=== PATIENT | female | born 1940 | race Caucasian/White ===

== ENCOUNTER → 2018-04-24 | Outpatient (CLI) | payer MEDICARE, BC, OTHER | END | disposition home or self-care (01) | LOC: LABWHC1 10:47 | PROVIDERS: ATTEND Anesthesiology | DX: Z01.818 Encounter for other preprocedural examination (principal) | CPT/HCPCS: 36415; 93005 ==

== ENCOUNTER → 2018-06-11 | Outpatient (CLI) | payer MEDICARE, BC ==
[2018-06-10 15:17] VITALS: BMI 25.0
[2018-06-11 13:42] VITALS: BP 154/80; PULSE 63; RESP 18
--- NOTE | 2018-06-12 09:08 | P.PAINCN ---
History of Present Illness - Reason for Consult Consult date: 06/11/18 - History of Present Illness This is an initial consultation visit for this 78 years old female, with a chronic history of severe low back pain, patient had lumbar laminectomy surgery 3 years ago, patient continued to have pain after the surgery the pain is constant, increased with any activity with radiation to the lower extremity, right side more than the left side, she denies any motor or sensory deficit she denies any change in the bowel movement or urination and she denies any fever or night sweats, intensity of the pain 02/10 increased with any activity to 8-9/ 10,, she has done physical therapy with no benefit. She is currently on Neurontin 300 mg every 6 hours, and she had minimal benefit from it, she denies any side effect of the medication, she was evaluated by Dr. Burgess neurosurgery, and he recommended interventions pain management Past Medical History Past Medical History: Diabetes Mellitus, GERD/Reflux, Hypertension, Musculoskeletal Disorder, Osteoarthritis (OA) Additional Past Medical History / Comment(s): bulging disc & spurs, pain down both legs, dick. right side, hx. pancreatitis 2010, diet controlled diabetes- used to be on metformin History of Any Multi-Drug Resistant Organisms: None Reported Past Surgical History: Back Surgery, Joint Replacement, Orthopedic Surgery Additional Past Surgical History / Comment(s): right knee replaced, knee manipulation, right hip replaced & then revision of it Past Anesthesia/Blood Transfusion Reactions: No Reported Reaction Smoking Status: Former smoker Past Alcohol Use History: None Reported Additional Past Alcohol Use History / Comment(s): quit smoking 40 yrs ago, smoked <ppd for 10 yrs. Past Drug Use History: None Reported - Past Family History Mother Family Medical History: Cancer Brother(s) Family Medical History: Cancer Medications and Allergies Home Medications Medication Instructions Recorded Confirmed Type Atenolol [Tenormin] 50 mg PO DAILY 06/10/18 06/11/18 History Gabapentin [Neurontin] 300 mg PO QID 06/10/18 06/11/18 History Hydrochlorothiazide [Hydrodiuril] 50 mg PO DAILY 06/10/18 06/11/18 History Omeprazole 20 mg PO DAILY 06/10/18 06/11/18 History Potassium Chloride [Klor-Con 20] 20 meq PO MOWEFR 10/08/18 10/09/18 History amLODIPine [Norvasc] 5 mg PO DAILY 06/10/18 06/11/18 History Allergies Allergy/AdvReac Type Severity Reaction Status Date / Time ampicillin Allergy Rash/Hives Verified 06/11/18 13:24 Physical Exam Vitals: Vital Signs Pulse Resp BP Pulse Ox 06/11/18 13:25 63 18 154/80 96 Social history : not smoker , NO ETOH , NO Illegal drugs use . Review of Systems : 1- Constitutional : no chills , no fever , no night sweats , 2- Ears : no ear discharge , no change in hearing 3-Nose, Mouth ,Throat ; no bleeding gums, no sore throat , no epistaxis , 4-Cardiovascular : Denies chest pain, , no orthopnea , no palpitation 5-Respiratory : Denies cough , no dyspnea , no hemoptysis 6-Gastrointestinal :, no change in bowel habits , no coffee- ground emesis . 7-Genitourinary : No hematuria , no discharge , no incontinence, 8-Musculoskeletal : No gait dysfunction , report low back pain , 9- Neurological : no ataxia , no tremor , no sezure , 10-Psychatric , no suicidal ideation no hallucination 11- Endocrine : no cold intolerence , no polyuria , no polydypsia , 12-Hematologic : no easy bleeding , no easy brusing , 13-Allergic / immunology : no angioedema , no wheezing ,no allergic rhinitis 14-Integumentary : no brttle nails , no change hair / nails , no foot/leg ulcers . Physical Examinations : 1-Constitutional : Cooperative , not in acute distress . 2-HEENT : nech ; supple , no Lymphadenopathy , no Thyromegaly , :eyes , no icterus, no photophobia . ENT : , normal oropharynx , no Thrush 3- Respiratory : Chest clear to auscultations Bilaterally , no wheezing . 4- Cardiovascular : regular rate and rhythem , S1 , S2 , no S3 , no S4. 5- Gastrointestinal: abdomen soft no tenderness , no organomegally . 6- Genitourinary : Defferred . 7-Integumentary : No cellulitis , no ulcers , normal skin turgor , no cyanotic . 8- neurologic : Cranial nerve II to XII intact , no focal neurological deffecit 9-psychatric : alert , oriented X 3 , appropriate affect , intact judgment and insight . 10-Lymphatic : no Lymphadenopathy. 11- musculoskeltal: antalgic gait Lumber spine moter stegnth lower extremities ,thigh and legs 5/5 Right side , 5/5 Left side deep tendon reflexes : normal Knee Jerk , normal ankle Jerk positive lumber facet Loading Test Range of motion of the lumbar spine Flexion 30 degrees, extension 10 degrees strait leg raising test , positive at 30 degree on the right side and is positive at 60 on the left side Fabere test positive bilaterally. Results Comments: MRI of the lumbar spine done at [facility]= L2-3 lumbar degenerative disc disease and right-sided disc herniation, L3 4 lumbar facet arthropathy and spinal stenosis, L4 5 and L5-S1 foraminal stenosis and spinal canal stenosis Assessment and Plan Plan: Assessment and plan= post laminectomy pain syndrome lumbar area, lumbar spinal stenosis, lumbar disc herniation Patient could benefit from caudal epidural steroid injection with lysis of epidural adhesions, procedure risk and benefits and alternatives discussed with the patient she agreed with proceeding Time with Patient: Greater than 30 PQRS Measure Charge Sheet Measure #130: Documentation of Current Meds in Medical Chart: Patient's medications documented in chart Measure #226: Tobacco Use: Screen & Cessation Intervention: Pt not a tobacco user Measure #111: Pneumonia Vaccination: Pneumococcal vaccine administered or previously received Measure #47: Advance Care Plan: Advance care planning discussed & documented, pt chose/unable to give Measure #412: Opioid Treatment Agreement: No documentation of signed opioid treatment agreement Measure #408: Opioid Therapy Follow-up Evaluation: Patient had NO f/u eval minimum every 3 months during opioid therapy Measure #317: Preventitive Care & Scrn High Bld Press & F/U: Pre-hypertensive or hypertensive BP documented, pt will f/u with PCP Measure #128: Body Mass Index (BMI) Screening & Follow-up: BMI documented within normal parameters Measure #131: Pain Assessment & Follow-up: Pain positive & plan documented, Follow-up scheduled Measure #431: Unhealthy Alcohol Use Preventative Care & Scrn: Patient not identified as an unhealthy alcohol user PQRS Narrative: Smoking Status Former smoker Do You Want the Pneumonia Vaccine Up to Date Vaccine AT THIS TIME? Blood Pressure 154/80 Pain Intensity [Lower Back] 8 Hx Alcohol Use (MH) No Home Medications: Ambulatory Orders Atenolol [Tenormin] 50 mg PO DAILY 06/10/18 Gabapentin [Neurontin] 300 mg PO QID 06/10/18 Hydrochlorothiazide [Hydrodiuril] 50 mg PO DAILY 06/10/18 Omeprazole 20 mg PO DAILY 06/10/18 Potassium Chloride [Klor-Con 20] 20 meq PO MOWEFR 06/10/18 amLODIPine [Norvasc] 5 mg PO DAILY 06/10/18
== END ==
LOC: PNWHC3 12:39
PROVIDERS: ATTEND Specialist
DX: G89.29 Other chronic pain (principal); M96.1 Postlaminectomy syndrome, not elsewhere classified; M48.061 Spinal stenosis, lumbar region without neurogenic claudication; M51.26 Other intervertebral disc displacement, lumbar region; I10 Essential (primary) hypertension; Z87.891 Personal history of nicotine dependence; Z79.899 Other long term (current) drug therapy; Z88.1 Allergy status to other antibiotic agents
CPT/HCPCS: 99211

== ENCOUNTER → 2018-06-25 | Day surgery (SDC) | payer MEDICARE, BC ==
[2018-06-19 10:00] VITALS: BMI 25.0
[~2018-06-25] MED LIST: SODIUM CHLORIDE 0.9% 1,000 ML IV ONE; SODIUM CHLORIDE 0.9% 500 ML 500 ML IV SCH
[2018-06-25 06:20] VITALS: RESP 18; TEMP 98
[2018-06-25 06:21] LABS: Glucose,Whole Blood 94 mg/dL (75-99)
--- NOTE | 2018-06-25 07:26 | P.PCN ---
Date of Procedure: 06/25/18 Procedure(s) Performed: PREOP DIAGNOSIS: 1- Lumbar postlaminectomy syndrome POSTOP DIAGNOSIS:1- Lumbar postlaminectomy syndrome PROCEDURE: Caudal epidural steroid injection with epidurolysis and epidurogram under fluoroscopic guidance ANESTHESIA: Local with 1% lidocaine 3 ml ,and moderate sedation, with Versed 2 mg and fentanyl 100 g EBL: Minimal. PROCEDURE INDICATION: The patient with post-laminectomy syndrome with low back pain and radiculopathy radiating down in both legs, here for a caudal epidural steroid injection with epidurolysis. PROCEDURE DESCRIPTION: The patient was seen and identified in the preoperative area. Risks, benefits, complications, and alternatives were discussed with the patient. The patient agreed to proceed with the procedure and signed the consent. IV was started, and vital signs were stable. Patient was taken to the OR and time out was completed. The patient was placed in the prone position on procedure table and a pillow was placed under the abdomen to reduce lumbar lordosis. The lumbosacral area was prepped and draped in the usual sterile fashion. Vital signs were closely monitored during the procedure. lateral view and the anterior-posterior plates of the sacrum were identified with infiltration of the area overlying the sacral hiatus with 1% lidocaine .A 17 gauge RK epidural needle was used to advance through the sacral hiatus into the caudal epidural space. Omnipaque 180 dye. 2cc was injected and the position of the needle was verified to be in the midline. A Racz catheter was introduced into the epidural space and was advanced towards the L5-S1 interspace under direct fluoroscopic guidance. Multiple passes were made with the catheter for lysis of epidural adhesions. Depo-Medrol 40 mg with 3ml of preservative free Lidocaine 1% and 5 ml of preservative free normal saline was injected slowly. Additional spread was seen to L4 under fluoroscopy. The needle and the catheter were withdrawn intact. EPIDUROGRAM: Isoview 200 mg dye 2 ml was injected with spread of the dye into the caudal epidural space and with spread cutoff at L5 prior to epidurolysis. Post epidurolysis dye 2 ml was injected and spread was seen to L3-4.There was further spread of the solution together with the dye above the L3 COMPLICATIONS: None. DISPOSITION / PLANS: The patient was placed in a supine position and transferred to the recovery area in a stable condition for observation and was discharged from the recovery room after meeting discharge criteria. Home discharge instructions given to the patient by the staff. The patient was reexamined prior to discharge. The patient will schedule a follow up in the clinic in 2-4 weeks.
[2018-06-25 07:53] VITALS: BP 147/68; PULSE 59
--- NOTE | 2018-06-25 10:35 | FL ---
Fluoroscopy HISTORY: Pain 8 seconds fluoroscopy time supplied to the referring clinician. 4 intraoperative C-arm images docume nt the procedure. See dictated report from anesthesia.
== END ==
LOC: ORPAIN 05:55
PROVIDERS: ATTEND Specialist
DX: M96.1 Postlaminectomy syndrome, not elsewhere classified (principal); G96.12 Meningeal adhesions (cerebral) (spinal); M48.061 Spinal stenosis, lumbar region without neurogenic claudication; M51.16 Intervertebral disc disorders with radiculopathy, lumbar region; E11.9 Type 2 diabetes mellitus without complications; K21.9 Gastro-esophageal reflux disease without esophagitis; I10 Essential (primary) hypertension; M19.90 Unspecified osteoarthritis, unspecified site; Z87.891 Personal history of nicotine dependence; Z79.899 Other long term (current) drug therapy; Z88.0 Allergy status to penicillin; Z88.8 Allergy status to other drugs, medicaments and biological substances; Z91.09 Other allergy status, other than to drugs and biological substances
CPT/HCPCS: 62264; J2250; J1030; J3010; Q9966; 99152

== ENCOUNTER → 2018-07-11 | Day surgery (SDC) | payer MEDICARE, BC ==
[2018-07-08 14:25] VITALS: BMI 25.4
[~2018-07-11] MED LIST changes: +IV FLUID CONTINUATION 1,000 ML IV ONE; -SODIUM CHLORIDE 0.9% 1,000 ML IV ONE
[2018-07-11 08:09] VITALS: RESP 16; TEMP 97.8
[2018-07-11 08:13] LABS: Glucose,Whole Blood 121 mg/dL (75-99)
--- NOTE | 2018-07-11 09:39 | P.PCN ---
Date of Procedure: 07/11/18 Procedure(s) Performed: PREOP DIAGNOSIS: 1- Lumbar postlaminectomy syndrome POSTOP DIAGNOSIS:1- Lumbar postlaminectomy syndrome PROCEDURE: Caudal epidural steroid injection with epidurolysis and epidurogram under fluoroscopic guidance ANESTHESIA: Local with 1% lidocaine 3 ml ,and moderate sedation, with Versed 2 mg and fentanyl 100 g EBL: Minimal. PROCEDURE INDICATION: The patient with post-laminectomy syndrome with low back pain and radiculopathy radiating down in both legs, here for a caudal epidural steroid injection with epidurolysis. PROCEDURE DESCRIPTION: The patient was seen and identified in the preoperative area. Risks, benefits, complications, and alternatives were discussed with the patient. The patient agreed to proceed with the procedure and signed the consent. IV was started, and vital signs were stable. Patient was taken to the OR and time out was completed. The patient was placed in the prone position on procedure table and a pillow was placed under the abdomen to reduce lumbar lordosis. The lumbosacral area was prepped and draped in the usual sterile fashion. Vital signs were closely monitored during the procedure. lateral view and the anterior-posterior plates of the sacrum were identified with infiltration of the area overlying the sacral hiatus with 1% lidocaine .A 17 gauge RK epidural needle was used to advance through the sacral hiatus into the caudal epidural space. Omnipaque 180 dye. 2cc was injected and the position of the needle was verified to be in the midline. A Racz catheter was introduced into the epidural space and was advanced towards the L5-S1 interspace under direct fluoroscopic guidance. Multiple passes were made with the catheter for lysis of epidural adhesions. Depo-Medrol 40 mg with 3ml of preservative free Lidocaine 1% and 5 ml of preservative free normal saline was injected slowly. Additional spread was seen to L4 under fluoroscopy. The needle and the catheter were withdrawn intact. EPIDUROGRAM: Isoview 200 dye 2 ml was injected with spread of the dye into the caudal epidural space and with spread cutoff at L5 prior to epidurolysis. Post epidurolysis dye 2 ml was injected and spread was seen to L3-4.There was further spread of the solution together with the dye above the L3 COMPLICATIONS: None. DISPOSITION / PLANS: The patient was placed in a supine position and transferred to the recovery area in a stable condition for observation and was discharged from the recovery room after meeting discharge criteria. Home discharge instructions given to the patient by the staff. The patient was reexamined prior to discharge. The patient will schedule a follow up in the clinic in 2-4 weeks. If patient continues to have pain after this injection today and then next visit we'll discuss with her the option of doing diagnostic medial branch block lumbar area, because patient reported ,that after the first caudal with lysis she had minimal benefit ,and the pain releife lasted only for a few days.
[2018-07-11 10:07] VITALS: BP 150/65; PULSE 62
--- NOTE | 2018-07-11 10:24 | FL ---
EXAMINATION TYPE: FL guided pain mgmt statistic DATE OF EXAM: 07/11/2018 HISTORY: Flouroscopy time 5 seconds of fluoroscopy provided. IMPRESSION: 1. Fluoroscopy time.
== END ==
LOC: ORPAIN 07:47
PROVIDERS: ATTEND Specialist
DX: M96.1 Postlaminectomy syndrome, not elsewhere classified (principal); G96.12 Meningeal adhesions (cerebral) (spinal); I10 Essential (primary) hypertension; K21.9 Gastro-esophageal reflux disease without esophagitis; E11.9 Type 2 diabetes mellitus without complications; Z88.0 Allergy status to penicillin; Z88.8 Allergy status to other drugs, medicaments and biological substances
CPT/HCPCS: 62264; J2250; J1030; J3010; Q9966; 99152

== ENCOUNTER → 2021-02-21 | Outpatient (CLI) | payer MEDICARE, BC ==
[2021-02-21 20:31] LABS: Basophils # (A) 0.04 X 10*3/uL (0.00-0.10); Basophils % (A) 0.7 %; Eosinophils # (A) 0.21 X 10*3/uL (0.04-0.35); Eosinophils % (A) 3.7 %; HCT 43.2 % (37.2-46.3); HGB 12.9 g/dL (12.0-15.0); Lymphocytes % (A) 24.5 %; MCH 25.8 pg (27.0-32.0); MCHC 29.9 g/dL (32.0-37.0); MCV 86.4 fL (80.0-97.0); Monocytes # (A) 0.54 X 10*3/uL (0.20-1.00); Monocytes % (A) 9.5 %; Neutrophils # (A) 3.51 X 10*3/uL (1.80-7.70); Neutrophils % (A) 61.4 %; Platelet Count 266 X 10*3/uL (140-440); RDW 14.6 % (11.5-14.5); WBC 5.71 X 10*3/uL (4.50-10.00)
[2021-02-21 21:37] LABS: Erythrocyte Sedimentation Rate 11 mm/Hr (0-30)
[2021-02-21 22:23] LABS: African American GFR (CKD) 69.5 (60.0-200.0); BUN/Creat Ratio 24.44 Ratio (12.00-20.00); C Reactive Protein <0.4 mg/dL (0.0-0.8); Calcium 9.7 mg/dL (8.7-10.3); Carbon Dioxide 31.2 mmol/L (21.6-31.8); Chloride 104 mmol/L (96-109); Glucose 137 mg/dL (70-110); Potassium 4.6 mmol/L (3.5-5.5); Sodium 143 mmol/L (135-145)
== END | disposition home or self-care (01) ==
LOC: LABWHC1 13:08
PROVIDERS: ATTEND Ophthalmology
DX: H47.019 Ischemic optic neuropathy, unspecified eye (principal)
CPT/HCPCS: 36415; 80048; 85025; 85652; 86140; 86780

== ENCOUNTER → 2021-07-14 | Outpatient (CLI) | payer OTHER ==
--- NOTE | 2021-07-14 12:46 | XR ---
EXAMINATION TYPE: XR ankle complete LT DATE OF EXAM: 07/14/2021 COMPARISON: NONE HISTORY: Pain FINDINGS: Three views of the ankle demonstrate the ankle mortise to be intact and symmetric. Soft tissue edema noted. Calcaneal spurs noted. Preserved. The osseous structures are intact. IMPRESSION: 1. No definite acute fracture or dislocation, if symptoms persist follow-up study in 7 to 10 days wou ld be suggested.
--- NOTE | 2021-07-14 12:48 | XR ---
EXAMINATION TYPE: XR foot complete LT DATE OF EXAM: 07/14/2021 COMPARISON: NONE HISTORY: Pain TECHNIQUE: Three views are submitted. FINDINGS: The osseous structures are intact. There is no acute fracture or dislocation. Hypertrophic change of the first MTP. Calcaneal spurs noted arthropathy of the PIP and DIP joints of third through fifth digits.. IMPRESSION: 1. No acute fracture or dislocation. If symptoms persist, follow-up exam in 7 to 10 days could be ob tained.
--- NOTE | 2021-07-14 12:50 | XR ---
EXAMINATION TYPE: XR facial bones complete DATE OF EXAM: 07/14/2021 COMPARISON: NONE HISTORY: Pain TECHNIQUE: 3 views submitted FINDINGS: Visualized osseous structures grossly intact. No definite acute displaced fracture. Soft ti ssue calcification the left neck likely related to the carotid artery. Correlate clinically. IMPRESSION: No acute fracture. If symptoms persist follow-up with CT scan.
== END | disposition home or self-care (01) ==
LOC: RADXRMAIN 11:51
PROVIDERS: ATTEND Family Medicine
DX: R51.9 Headache, unspecified (principal); M25.572 Pain in left ankle and joints of left foot; M79.672 Pain in left foot
CPT/HCPCS: 70150

== ENCOUNTER 2023-12-20 20:06 | Inpatient (IN) | payer MEDICARE, BC ==
[2023-12-20] MEDS: ASPIRIN 81 MG PO STA (20:50)
[2023-12-20 21:14] LABS: HCT 42.6 % (34.0-46.0); HGB 13.5 gm/dL (11.4-16.0); MCH 26.3 pg (25.0-35.0); MCHC 31.6 g/dL (31.0-37.0); MCV 83.2 fL (80.0-100.0); Mean Platelet Volume 8.3; Platelet Count 204 k/uL (150-450); RBC 5.12 m/uL (3.80-5.40); RDW 13.7 % (11.5-15.5); WBC 4.2 k/uL (3.8-10.6)
--- NOTE | 2023-12-20 21:19 | XR ---
EXAMINATION TYPE: XR chest 2V DATE OF EXAM: 12/20/2023 COMPARISON: NONE HISTORY: Chest pain TECHNIQUE: Frontal and lateral views of the chest are obtained. FINDINGS: On the lateral view, there is a posterior partially consolidative opacity consistent with a pneumoni c infiltrate. Uncertain location based on the frontal view but most likely is within the left lower l obe posteriorly. The heart is moderately enlarged. The pulmonary vasculature is not congested. There is no pneumothorax or pleural effusion. The osseous structures are intact. IMPRESSION: Posterior lower lobe infiltrate likely in the left lung base. Findings most consistent w ith a pneumonic infiltrate and clinical correlation short-term follow-up to resolution is recommended .
[2023-12-20 21:23] LABS: ALT 16 U/L (4-34); AST 34 U/L (14-36); African American GFR (CKD) 74 (>60 ml/min/1.73 sqM); Albumin 4.4 g/dL (3.5-5.0); Alkaline Phosphatase 89 U/L (38-126); Anion Gap 9 mmol/L; Blood Urea Nitrogen 29 mg/dL (7-17); Calcium 9.7 mg/dL (8.4-10.2); Carbon Dioxide 25 mmol/L (22-30); Chloride 108 mmol/L (98-107); Glucose 87 mg/dL (74-99); Magnesium 2.1 mg/dL (1.6-2.3); Non-African American GFR(CKD) 64 (>60 ml/min/1.73 sqM); Potassium 4.2 mmol/L (3.5-5.1); Sodium 142 mmol/L (137-145); Total Bilirubin 0.4 mg/dL (0.2-1.3); Total Protein 7.6 g/dL (6.3-8.2)
[2023-12-20 21:32] LABS: Partial Thromboplastin Time 24.3 sec (22.0-30.0); Prothrombin Time 10.7 sec (10.0-12.5)
[2023-12-20 22:13] LABS: Eosinophils # (M) 0.08 k/uL (0-0.7); Lymphocytes # (M) 0.88 k/uL (1.0-4.8); Monocytes # (M) 0.59 k/uL (0-1.0); Neutrophils # (M) 2.65 k/uL (1.3-7.7); Neutrophils % (M) 63 %; Nucleated Red Blood Cells 0 /100 WBC (0-0); Total Cells Counted 100
[2023-12-21] MEDS ORDERED: IBUPROFEN 400 MG TAB PO PRN (00:02)
[2023-12-21] MEDS ORDERED: NALOXONE 0.4 MG/ML 1 ML VIAL IV PRN (00:02)
[2023-12-21] MEDS ORDERED: ACETAMINOPHEN TAB 325 MG TAB PO PRN (00:02)
[2023-12-21] MEDS ORDERED: IPRATROPIUM-ALBUTEROL 3 ML NEB INHALATION PRN (00:03)
--- NOTE | 2023-12-21 00:05 | ED ---
Chest Pain HPI - General Chief Complaint: Chest Pain Stated Complaint: chest pain Time Seen by Provider: 12/20/23 20:15 Source: patient Mode of arrival: wheelchair Limitations: no limitations - History of Present Illness Initial Comments: 83-year-old female with history of diabetes, hyperlipidemia, hypertension presenting with chief complaint of chest pain. Pain started around 730 this evening. She states that it was a pressure-like pain in the center of her chest. No pain at this time. She admits to cough. No fevers. No radiation into the arms or neck. No shortness of breath. No abdominal pain, nausea, vomiting. No recent injury. No weakness. - Related Data Home Medications Medication Instructions Recorded Confirmed Gabapentin [Neurontin] 300 mg PO QID 06/10/18 07/11/18 Omeprazole 20 mg PO DAILY 06/10/18 07/11/18 Potassium Chloride [Klor-Con 20] 20 meq PO MOWEFR 06/10/18 07/11/18 amLODIPine [Norvasc] 5 mg PO DAILY 06/10/18 07/11/18 atenoloL [Tenormin] 50 mg PO DAILY 06/10/18 07/11/18 hydroCHLOROthiazide [Hydrodiuril] 50 mg PO DAILY 06/10/18 07/11/18 Allergies Allergy/AdvReac Type Severity Reaction Status Date / Time ampicillin Allergy Rash/Hives Verified 12/20/23 20:10 Cwusrul-EFI-AaT Reductase Allergy muscles Verified 12/20/23 20:10 Inhibitor tighten [Plyoqfr-Qhi-Itc Reductase Inhibitor] lisinopril AdvReac Cough Verified 12/20/23 20:10 losartan AdvReac Cough Verified 12/20/23 20:10 nickel AdvReac Rash/Hives Verified 12/20/23 20:10 prednisone AdvReac redness Verified 12/20/23 20:10 rosuvastatin [From Crestor] AdvReac redness Verified 12/20/23 20:10 Review of Systems ROS Statement: Those systems with pertinent positive or pertinent negative responses have been documented in the HPI. ROS Other: All systems not noted in ROS Statement are negative. EKG Findings - EKG Comments: EKG Findings:: EKG shows sinus rhythm ventricular rate 61. CO interval 177. QRS 90. QT 394. QTc 397. No ST deviation Past Medical History Past Medical History: Diabetes Mellitus, GERD/Reflux, Hyperlipidemia, Hypertension, Osteoarthritis (OA) Additional Past Medical History / Comment(s): bulging disc & spurs, pain down both legs(rt worse) ,hx. pancreatitis 2010, diet controlled diabetes-used to be on metformin-"borderline" History of Any Multi-Drug Resistant Organisms: None Reported Past Surgical History: Back Surgery, Joint Replacement, Orthopedic Surgery Additional Past Surgical History / Comment(s): right knee replacement, rt knee manipulation, right hip replacement & then revision of it, rt cataract Past Anesthesia/Blood Transfusion Reactions: No Reported Reaction Additional Past Anesthesia/Blood Transfusion Reaction / Comment(s): claustrophobia Past Psychological History: No Psychological Hx Reported Smoking Status: Never smoker Past Alcohol Use History: None Reported Past Drug Use History: None Reported - Past Family History Mother Family Medical History: Cancer Brother(s) Family Medical History: Cancer General Exam Limitations: no limitations General appearance: alert, in no apparent distress Head exam: Present: atraumatic, normocephalic Eye exam: Present: normal appearance, EOMI Neck exam: Present: normal inspection. Absent: meningismus Respiratory exam: Present: normal lung sounds bilaterally. Absent: respiratory distress, wheezes, rales, rhonchi, stridor Cardiovascular Exam: Present: regular rate, normal rhythm, normal heart sounds. Absent: systolic murmur, diastolic murmur, rubs, gallop, clicks Extremities exam: Absent: pedal edema Neurological exam: Present: alert, oriented X3 Psychiatric exam: Present: normal affect, normal mood Skin exam: Present: warm, dry Course Vital Signs 12/20/23 12/20/23 12/20/23 20:08 21:30 22:00 Temperature 99.1 F Pulse Rate 64 66 57 L Respiratory 16 18 18 Rate Blood Pressure 182/97 183/82 166/70 O2 Sat by Pulse 98 96 96 Oximetry 12/20/23 12/20/23 12/20/23 22:05 23:00 23:54 Temperature 97.9 F Pulse Rate 60 57 L 54 L Respiratory 14 13 18 Rate Blood Pressure 167/82 162/101 159/76 O2 Sat by Pulse 95 95 96 Oximetry 12/21/23 12/21/23 12/21/23 00:00 01:00 02:47 Temperature Pulse Rate 57 L 62 Respiratory 17 15 Rate Blood Pressure 184/89 168/60 170/89 O2 Sat by Pulse 96 96 Oximetry Chest Pain MDM - MDM Was pt. sent in by a medical professional or institution (, [facility], [employer]STUME DESIGN TEACHER, urgent care, hospital, or alf...) When possible be specific @ -No Did you speak to anyone other than the patient for history (EMS, parent, family, police, friend...)? What history was obtained from this source @ -No Did you review nursing and triage notes (agree or disagree)? Why? @ -I reviewed and agree with nursing and triage notes Were old charts reviewed (outside hosp., previous admission, EMS record, old EKG, old radiological studies, urgent care reports/EKG's, alf records)? Report findings @ -No old charts were reviewed Differential Diagnosis (chest pain, altered mental status, abdominal pain women, abdominal pain men, vaginal bleeding, weakness, fever, dyspnea, syncope, headache, dizziness, GI bleed, back pain, seizure, CVA, palpatations, mental health, musculoskeletal)? @ -MDM Differential Chest Pain: Stable Angina, Unstable Angina, STEMI, NSTEMI Aortic Dissection, Pneumothorax, Musculoskeletal, Esophageal Spasm GERD, Cholecystitis, Pancreatitis, Zoster This is not meant to be an all-inclusive list. EKG interpreted by me (3pts min.). @ -As above X-rays interpreted by me (1pt min.). @ -Chest x-ray shows posterior lower lobe infiltrate likely in the left lung base. Findings most consistent with a pneumonic infiltrate and clinical correlation and short-term follow-up to resolution is recommended CT interpreted by me (1pt min.). @ -None done U/S interpreted by me (1pt. min.). @ -None done What testing was considered but not performed or refused? (CT, X-rays, U/S, labs)? Why? @ -None What meds were considered but not given or refused? Why? @ -None Did you discuss the management of the patient with other professionals (professionals i.e. [facility], CO[employer] DESIGN TEACHER, lab, RT, psych nurse, licensed social worker, risk management intern, te acher, chief information officer, disease case manager)? Give summary @ -I spoke with Dr. Gomez who accepted admission Was smoking cessation discussed for >3mins.? @ -No Was critical care preformed (if so, how long)? @ -No Were there social determinants of health that impacted care today? How? (Homelessness, low income, unemployed, alcoholism, drug addiction, transportation, low edu. Level, literacy, decrease access to med. care, [facility], rehab)? @ -No Was there de-escalation of care discussed even if they declined (Discuss DNR or withdrawal of care, Hospice)? DNR status @ -No What co-morbidities impacted this encounter? (DM, HTN, Smoking, COPD, CAD, Cancer, CVA, ARF, Chemo, Hep., AIDS, mental health diagnosis, sleep apnea, morbid obesity)? @ -Diabetes, hypertension, hyperlipidemia Was patient admitted / discharged? Hospital course, mention meds given and route, prescriptions, significant lab abnormalities, going to OR and other pertinent info. @ -83-year-old female presenting with chief complaint of chest pain. History and physical exam are conducted. Negative troponin. Lab work shows no leukocytosis or anemia. Chest x-ray suggest pneumonia. BNP is 175. EKG shows sinus rhythm. Patient is treated for pneumonia with Rocephin. She will be admitted for observation and continued IV antibiotics. She is agreeable with this plan. I discussed this case with my attending Dr. Lloyd Undiagnosed new problem with uncertain prognosis? @ -No Drug Therapy requiring intensive monitoring for toxicity (Heparin, Nitro, Insulin, Cardizem)? @ -No Were any procedures done? @ -No Diagnosis/symptom? @ -Pneumonia Acute, or Chronic, or Acute on Chronic? @ -Acute Uncomplicated (without systemic symptoms) or Complicated (systemic symptoms)? @ -Complicated Side effects of treatment? @ -No Exacerbation, Progression, or Severe Exacerbation? @ -No Poses a threat to life or bodily function? How? (Chest pain, [place], [place], pneumonia, PE, COPD, DKA, ARF, appy, cholecystitis, CVA, Diverticulitis, Homicidal, Suicidal, threat to staff... and all critical care pts) @ -Yes Disposition Clinical Impression: Pneumonia Disposition: ADMITTED IP TO THIS HOSP Condition: Fair Time of Disposition: 00:04
[2023-12-21] MEDS: cefTRIAXone IN SWFI 1,000 MG/10 ML SYRINGE IVP STA (00:19)
[2023-12-21] MEDS: atenoloL 50 MG TAB PO STA (01:09)
[2023-12-21] MEDS: hydroCHLOROthiazide 25 MG TAB PO STA (01:09)
[2023-12-21 06:16] VITALS: RESP 16
[2023-12-21] MEDS: IPRATROPIUM-ALBUTEROL 3 ML NEB INHALATION SCH (08:05)
[2023-12-21] MEDS ORDERED: HYDROcodone/APAP 5-325MG 1 EACH TAB PO PRN (09:45)
[2023-12-21] MEDS: ATORVASTATIN 10 MG TAB PO SCH (09:55)
[2023-12-21] MEDS: PREGABALIN 75 MG CAP PO SCH (09:55)
[2023-12-21] MEDS: PANTOPRAZOLE 40 MG TABLET PO SCH (09:55)
[2023-12-21] MEDS: LOSARTAN 25 MG TAB PO SCH (09:55)
[2023-12-21] MEDS: atenoloL 50 MG TAB PO SCH (09:55)
[2023-12-21] MEDS: BUMETANIDE 0.5 MG TABLET PO SCH (10:57)
[2023-12-21] MEDS ORDERED: DEXTROSE 50% SYRINGE 50 ML IVP PRN ×2 (11:30)
[2023-12-21] MEDS: AZITHROMYCIN 500 MG in SODIUM CHLORIDE 0.9% 250 ML IVPB SCH (11:48)
[2023-12-21 11:55] LABS: Glucose,Whole Blood 103 mg/dL (70-110)
[2023-12-21] MEDS: INSULIN ASPART (NovoLOG) 100 UNIT/ML VIAL SQ SCH (12:43)
--- NOTE | 2023-12-21 12:45 | HP ---
HISTORY AND PHYSICAL CHIEF COMPLAINT: Chest pain as well as cough and sputum. HISTORY OF PRESENT ILLNESS: This is an 83-year-old woman with a past medical history of multiple medical problems, was struggling with respiratory symptoms for the last several days. The patient also had significant chest pain in the anterior part of the chest. The patient noted as she is having a heart attack came to [facility], was found to have left lower pneumonia, admitted for further evaluation and treatment. Troponin is less than 0.01 to 0.021 and 0.19. EKG did not show any acute abnormality. PAST MEDICAL HISTORY: Diabetes mellitus, hypertension, hyperlipidemia, rest of the history and rest of the chart is also reviewed. HOME MEDICATIONS: Prilosec, dose and rest of medications are noted. ALLERGIES: Ampicillin, rest of the allergies noted. FAMILY HISTORY: History of cancer. SOCIAL HISTORY: Remote history of smoking. REVIEW OF SYSTEMS: A 14-point review is negative except as mentioned. PHYSICAL EXAMINATION: VITAL SIGNS: Pulse is 60, blood pressure 190/74, respirations 16. HEENT: Conjunctivae normal. CARDIOVASCULAR: S1, S2. RESPIRATIONS: Diminished at the bases, few scattered rhonchi and crackles. ABDOMEN: Soft, nontender. LEGS: No edema. No swelling. NERVOUS SYSTEM: No focal deficits. SKIN: No ulcer, rash, bleeding. JOINTS: No active deforming arthropathy. LABORATORY DATA: Reviewed. ASSESSMENT: 1. Chest pain for evaluation, rule out unstable angina. 2. Left lower pneumonia. 3. Diabetes mellitus, type 2. 4. Hypertension. 5. Hyperlipidemia. 6. Possible COPD. RECOMMENDATIONS: This 83-year-old woman presented with multiple complex medical issues, we will monitor the patient closely, continue the current medications. I would recommend empiric antibiotics, cardiology consultation, bronchodilators, symptomatic treatment. I would also recommend IV steroids and guarded prognosis. Further recommendations to follow. Pulmonary, Cardiology consultations. MMODL / IJN: [id number] /
[2023-12-21] MEDS ORDERED: RX INFO: IV CONTRAST WAS GIVEN 1 EACH MISC MISCELLANE PRN (13:19)
[2023-12-21] MEDS: HEPARIN SODIUM,PORCINE 5,000 UNIT/ML 1 ML VIAL SQ SCH (13:20)
--- NOTE | 2023-12-21 13:20 | P.CNPUL ---
History of Present Illness Consult date: 12/21/23 Requesting physician: Chevy Gomez Reason for consult: abnormal CXR/CT Chief complaint: Chest pain History of present illness: This is a very pleasant 83-year-old female patient with a known history of hyperlipidemia, gastroesophageal reflux disease, diabetes mellitus, hypertension osteoarthritis. Former smoker. She presented here to the emergency room last evening with complaints of midsternal chest pain. She denied any fever or chills. She did have occasional cough. No productive cough. No hemoptysis. No shortness of breath. X-ray revealed a posterior lower lobe infiltrate in the left lung base possible atelectasis versus infiltrate. EKG revealed normal sinus rhythm without any ST or T wave abnormalities. White count 4.2. Hemoglobin 13.5. Platelets 205. Sodium 142. Potassium 4.2. Bicarb 25. BUN 29. Creatinine 0.84. Troponins negative x 3. Pro BNP 175. She is seen today in consultation on the regular medical floor. She is awake and alert in no acute distress. She is up ambulating in her room. She is maintaining O2 saturations in the 90s on room air. No further chest pain. No pulmonary complaints. Review of Systems REVIEW OF SYSTEMS: CONSTITUTIONAL: Denies any recent significant weight loss or weight gain. EYES: Denies change in vision. EARS, NOSE, MOUTH, THROAT: Denies headaches, denies sore throat. CARDIOVASCULAR: Positive for chest pain, no palpitations or syncopal episodes. RESPIRATORY: Denies shortness of breath, positive for dry occasional cough, no congestion or hemoptysis. GASTROINTESTINAL: Denies change in appetite, denies abdominal pain GENITOURINARY: Denies hematuria, denies infections. MUSKULOSKELETAL: Denies pain, denies swelling. INTEGUMENTARY: Denies rash, denies eczema. NEUROLOGICAL: Denies recent memory loss, no recent seizure activity. PSYCHIATRIC: Denies anxiety, denies depression. HEMATOLOGIC/LYMPHATIC: Denies anemia, denies enlarged lymph nodes. Past Medical History Past Medical History: Diabetes Mellitus, GERD/Reflux, Hyperlipidemia, Hypertens ion, Osteoarthritis (OA) Additional Past Medical History / Comment(s): bulging disc & spurs, pain down both legs(rt worse) ,hx. pancreatitis 2010, diet controlled diabetes-used to be on metformin-"borderline" History of Any Multi-Drug Resistant Organisms: None Reported Past Surgical History: Back Surgery, Joint Replacement, Orthopedic Surgery Additional Past Surgical History / Comment(s): right knee replacement, rt knee manipulation, right hip replacement & then revision of it, rt cataract Past Anesthesia/Blood Transfusion Reactions: No Reported Reaction Additional Past Anesthesia/Blood Transfusion Reaction / Comment(s): claustrophobia Past Psychological History: No Psychological Hx Reported Smoking Status: Never smoker Past Alcohol Use History: None Reported Past Drug Use History: None Reported - Past Family History Mother Family Medical History: Cancer Brother(s) Family Medical History: Cancer Medications and Allergies Home Medications Medication Instructions Recorded Confirmed Type atenoloL [Tenormin] 50 mg PO BID 06/10/18 12/21/23 History Bumetanide [BUMEX] 0.5 mg PO DAILY 12/21/23 12/21/23 History Fluvastatin Sodium [Fluvastatin ER] 80 mg PO DAILY 12/21/23 12/21/23 History HYDROcodone/APAP 5-325MG [Alpine 1 tab PO DAILY PRN 12/21/23 12/21/23 History 5-325] Losartan [Cozaar] 25 mg PO DAILY 12/21/23 12/21/23 History Omeprazole [PriLOSEC] 40 mg PO DAILY 12/21/23 12/21/23 History Pregabalin [Lyrica] 150 mg PO BID 12/21/23 12/21/23 History metFORMIN HCL 250 mg PO DAILY 12/21/23 12/21/23 History Allergies Allergy/AdvReac Type Severity Reaction Status Date / Time ampicillin Allergy Rash/Hives Verified 12/21/23 07:22 nickel Allergy Rash/Hives Verified 12/21/23 07:22 amlodipine [From Norvasc] AdvReac ankle edema Verified 12/21/23 07:23 lisinopril AdvReac Cough Verified 12/21/23 07:22 losartan AdvReac Cough - Verified 12/21/23 07:22 See comment prednisone AdvReac redness Verified 12/21/23 07:22 rosuvastatin [From Crestor] AdvReac redness Verified 12/21/23 07:22 [id number]-CmP Reductase AdvReac muscle Verified 12/21/23 07:22 Inhibitor spasms - [Sdsxpdf-Ito-Swq Reductase see comment Inhibitor] Physical Exam Vitals: Vital Signs Temp Pulse Pulse Resp BP BP Pulse Ox 12/21/23 11:55 97.8 F 63 16 163/74 95 12/21/23 11:34 91 12/21/23 11:24 94 12/21/23 08:26 90 12/21/23 08:05 87 12/21/23 08:04 97.6 F 60 16 196/77 97 12/21/23 06:07 56 L 16 151/85 95 12/21/23 02:47 62 170/89 12/21/23 01:00 57 L 15 168/60 96 12/21/23 00:00 17 184/89 96 12/20/23 23:54 97.9 F 54 L 18 159/76 96 12/20/23 23:00 57 L 13 162/101 95 12/20/23 22:05 60 14 167/82 95 12/20/23 22:00 57 L 18 166/70 96 12/20/23 21:30 66 18 183/82 96 12/20/23 20:08 99.1 F 64 16 182/97 98 Intake and Output 12/20/23 12/21/23 12/21/23 22:59 06:59 14:59 Other: Voiding Method Toilet # Voids 1 Weight 63.503 kg GENERAL EXAM: Alert, active, very pleasant 83-year-old female, on room air, comfortable in no apparent distress. HEAD: Normocephalic. EYES: Normal reaction of pupils, equal size. NOSE: Clear with pink turbinates. THROAT: No erythema or exudates. NECK: No masses, no JVD. CHEST: No chest wall deformity. LUNGS: Equal air entry with no crackles, wheeze, rhonchi or dullness. CVS: S1 and S2 normal with no audible murmur, regular rhythm. ABDOMEN: No hepatosplenomegaly, normal bowel sounds, no guarding or rigidity. SPINE: No scoliosis or deformity SKIN: No rashes CENTRAL NERVOUS SYSTEM: No focal deficits, tone is normal in all 4 extremities. EXTREMITIES: There is no peripheral edema. No clubbing, no cyanosis. Peripheral pulses are intact. Results - Laboratory Findings CBC and BMP: 12/20/23 21:04 12/20/23 21:04 PT/INR, D-dimer PT 10.7 sec (10.0-12.5) 12/20/23 21:04 INR 1.0 (<1.2) 12/20/23 21:04 Abnormal lab findings: Abnormal Labs 12/20/23 12/20/23 21:04 21:04 Lymphocytes # (Manual) 0.88 L Chloride 108 H BUN 29 H - Diagnostic Findings Chest x-ray: image reviewed Assessment and Plan Assessment: Atypical chest pain, acute coronary syndrome ruled out Dry nonproductive cough, chest x-ray shows infiltrate/atelectasis in the left posterior base left posterior Hypertension Hyperlipidemia Gastroesophageal reflux disease Diabetes mellitus Osteoarthritis Plan: The patient was seen and evaluated Chest x-ray, labs and medications reviewed Continue antibiotics for now Check a procalcitonin CT scan of the chest Stable and on room air Will continue to follow and make further recommendations based on her clinical status I have personally seen and examined the patient, performed the documentation and the assessment and plan as written. Number of minutes spent on the visit: 20.
[2023-12-21] MEDS: methylPREDNISolone SOD SUCCI 125 MG/2 ML VIAL IV SCH (13:22)
[2023-12-21 17:09] LABS: Glucose,Whole Blood 104 mg/dL (70-110)
--- NOTE | 2023-12-21 17:56 | CT ---
EXAMINATION TYPE: CT chest w con DATE OF EXAM: 12/21/2023 COMPARISON: Radiograph 12/20/2023 HISTORY: 83-year-old female infiltrate, left lower lobe mass, infiltrate/chest pain TECHNIQUE: Contiguous axial scanning of the chest after the administration of 100 mL of Isovue 300. Coronal/sagittal reconstructions performed. CT DLP: 400mGycm. Automatic exposure control utilized for a dose reduction. FINDINGS: The heart is borderline enlarged without pericardial effusion. Scattered LAD andr circumflex coronary calcifications are present. [id number]-[id number] atherosclerotic plaque and calcification within the aortic arch with conventional ar ch vessel branching anatomy. Borderline to mildly enlarged 1.2 cm lower right paratracheal lymph node. However, larger subcarinal nodes measuring up to 3.6 cm and right infrahilar node measuring 3.5 cm. Medial right lower lobe nodu le measuring 2.9 cm. There are reticular change in the lower lungs suggesting some underlying fibrosis. Otherwise, no cons olidation or pleural effusion. Slight hiatal hernia. Gastric fold thickening may reflect underlying gastritis. Phrygian cap of the g allbladder. An exophytic 4.8 cm cyst posterior upper left kidney. Hilar splenule. Moderate stool burden. Left-jean claude ed colonic diverticulosis partially seen. Moderate degenerative disc disease midthoracic spine with anterior spondylosis. No osseous destructiv e process seen. IMPRESSION: 1. Findings suggest metastatic disease given the subcarinal and right hilar adenopathy measuring up t o 3.6 cm. Additional medial right lower lobe nodule measuring 2.9 cm. 2. Some scattered interstitial fibrosis in the lower lungs. 3. Gastric fold thickening may reflect underlying gastritis.
[2023-12-21 20:21] LABS: Glucose,Whole Blood 120 mg/dL (70-110)
[2023-12-22 05:46] LABS: Glucose,Whole Blood 143 mg/dL (70-110)
[2023-12-22 08:45] VITALS: BP 163/77; PULSE 66; TEMP 97.6
--- NOTE | 2023-12-22 12:07 | P.PN ---
Subjective Progress Note Date: 12/22/23 This is a very pleasant 83-year-old female patient with a known history of hyperlipidemia, gastroesophageal reflux disease, diabetes mellitus, hypertension osteoarthritis. Former smoker. She presented here to the emergency room last evening with complaints of midsternal chest pain. She denied any fever or chills. She did have occasional cough. No productive cough. No hemoptysis. No shortness of breath. X-ray revealed a posterior lower lobe infiltrate in the left lung base possible atelectasis versus infiltrate. EKG revealed normal sinus rhythm without any ST or T wave abnormalities. White count 4.2. Hemoglobin 13.5. Platelets 205. Sodium 142. Potassium 4.2. Bicarb 25. BUN 29. Creatinine 0.84. Troponins negative x 3. Pro BNP 175. She is seen today in consultation on the regular medical floor. She is awake and alert in no acute distress. She is up ambulating in her room. She is maintaining O2 saturations in the 90s on room air. No further chest pain. No pulmonary compl aints. The patient is seen today December 22, 2023 in follow-up on the regular medical floor. She is currently sitting up in bed. Awake and alert in no acute distress. She denies any shortness of breath, cough or congestion. No hemoptysis. Denies any further chest discomfort. She is maintaining good O2 saturations in the 90s on room air. CT scan of the chest did reveal findings suggestive of metastatic disease given the subcarinal and right hilar adenopathy measuring up to 3.6 cm. Additional medial right lower lobe nodule measuring 2.9 cm. Few scattered interstitial fibrosis of the lower lungs. Glucose 143. Hemoglobin A1c 6.6. Procalcitonin was 0.06. She is currently on DuoNeb dayana tilations, Solu-Medrol. Antibiotics in the form of ceftriaxone and azithromycin. Objective - Vital Signs Vital signs: Vital Signs Temp 97.6 F 12/22/23 08:00 Pulse 66 12/22/23 08:00 Resp 16 12/22/23 08:00 BP 163/77 12/22/23 08:00 Pulse Ox 96 12/22/23 08:00 FiO2 Intake & Output 12/21/23 12/22/23 12/22/23 18:59 06:59 18:59 Intake Total 118 Balance 118 Weight 63.503 kg Intake: Oral 118 Other: Voiding Method Toilet # Voids 1 2 - Exam GENERAL EXAM: Alert, active, pleasant 83-year-old female, on room air, comfortable in no apparent distress. HEAD: Normocephalic. EYES: Normal reaction of pupils, equal size. NOSE: Clear with pink turbinates. THROAT: No erythema or exudates. NECK: No masses, no JVD. CHEST: No chest wall deformity. LUNGS: Equal air entry with no crackles, wheeze, rhonchi or dullness. CVS: S1 and S2 normal with no audible murmur, regular rhythm. ABDOMEN: No hepatosplenomegaly, normal bowel sounds, no guarding or rigidity. SPINE: No scoliosis or deformity SKIN: No rashes CENTRAL NERVOUS SYSTEM: No focal deficits, tone is normal in all 4 extremities. EXTREMITIES: There is no peripheral edema. No clubbing, no cyanosis. Peripheral pulses are intact. - Labs CBC & Chem 7: 12/20/23 21:04 12/20/23 21:04 Labs: Abnormal Lab Results - Last 24 Hours (Table) 12/21/23 12/22/23 12/22/23 Range/Units 20:20 04:45 05:45 POC Glucose (mg/dL) 120 H 143 H (70-110) mg/dL Hemoglobin A1c 6.6 H (<=6.0) % Assessment and Plan Assessment: Atypical chest pain, acute coronary syndrome ruled out Dry nonproductive cough, chest x-ray shows infiltrate/atelectasis in the left posterior base left posterior. CT scan of the chest reveals endings suggestive of metastatic disease given the subcarinal and right hilar adenopathy measuring up to 3.6 cm. Additional medial right lower lobe nodule measuring 2.9 cm. Some scattered interstitial fibrosis of the lower lungs. Hypertension Hyperlipidemia Gastroesophageal reflux disease Diabetes mellitus Osteoarthritis Plan: The patient was seen and evaluated CT scan of the chest, labs and medications reviewed The patient was informed of her suspected cancer diagnosis Will be set up for an outpatient PET scan and eventual biopsy Procalcitonin within normal limits, antibiotics discontinued Bronchodilators and steroids discontinued Cleared for discharge from the pulmonary standpoint Follow-up in the office in 1 week This patient was seen independently by the pulmonary nurse practitioner addressing pulmonary issues I have personally seen and examined the patient, performed the documentation and the assessment and plan as written. Number of minutes spent on the visit: 25.
[2023-12-22 12:22] LABS: Glucose,Whole Blood 187 mg/dL (70-110)
--- NOTE | 2023-12-22 13:42 | DS ---
DISCHARGE SUMMARY FINAL DIAGNOSES: 1. Chest pain, unstable angina, ruled out. 2. Left lobe pneumonia, improved. 3. Diabetes mellitus, type 2. 4. Hypertension. 5. Hyperlipidemia. 6. Possible chronic obstructive pulmonary disease. 7. Possible metastatic disease with subcarinal and right hilar adenopathy. DISCHARGE DISPOSITION: The patient will be discharged in stable condition and guarded prognosis. Dr. Vanegas recommended outpatient followup. HISTORY OF PRESENT ILLNESS: An 83-year-old woman was admitted with features of pneumonia and multiple other medical issues, myocardial infarction ruled out, and Pulmonary saw the patient, abdominal CAT scan is noted, recommend outpatient followup. PHYSICAL EXAMINATION: VITAL SIGNS: Stable. CARDIOVASCULAR: S1 and S2. RESPIRATORY: Few scattered rhonchi and crackles. The patient will be discharged with Combivent and as well as follow up with Dr. Vanegas, Dr. Denis and Dr. Gomez in the outpatient setting. Once again, the patient is extremely keen on going home. MMODL / IJN: [id number] /
== END 2023-12-22 13:08 | disposition home or self-care (01) | DRG 194 ==
LOC: EC 20:06 → 6NMEDSUR 12-21 00:03 → OBSVTOIN 12-21 11:31
PROVIDERS: ADMIT Family Medicine; ATTEND Family Medicine
DX: J18.9 Pneumonia, unspecified organism (principal); C78.01 Secondary malignant neoplasm of right lung; J44.0 Chronic obstructive pulmonary disease with (acute) lower respiratory infection; E78.5 Hyperlipidemia, unspecified; F40.240 Claustrophobia; I10 Essential (primary) hypertension; K21.9 Gastro-esophageal reflux disease without esophagitis; M19.90 Unspecified osteoarthritis, unspecified site; E11.9 Type 2 diabetes mellitus without complications; Z96.641 Presence of right artificial hip joint; Z96.651 Presence of right artificial knee joint; Z79.84 Long term (current) use of oral hypoglycemic drugs; Z79.899 Other long term (current) drug therapy; Z88.0 Allergy status to penicillin; Z88.8 Allergy status to other drugs, medicaments and biological substances
CPT/HCPCS: 36415; 71046; 71260; 80053; 83036; 83735; 83880; 84145; 84484; 85025; 85610; 85730; 93005; 94640; 96374; 99285

== ENCOUNTER → 2023-12-28 | Outpatient (CLI) | payer MEDICARE, BC ==
--- NOTE | 2023-12-29 09:05 | PE ---
EXAMINATION TYPE: PET CT fusion skull to thigh DATE OF EXAM: 12/28/2023 CLINICAL INDICATION:Female, 83 years old with history of R91.8 LUNG MASS; TECHNIQUE: Following the intravenous administration of 10.1 mCi of F-18 FDG, whole body images are performed from the skull base to the midthigh. Images are reviewed on the computer in the coronal, a xial, and sagittal planes. Reconstructed rotating images are created on independent workstation and reviewed on the computer. A non-contrast CT is performed in conjunction with the PET scan. Glucose level 94 mg/dL CT DLP: 468 mGycm, Automated exposure control for dose reduction was used. COMPARISON: CT 12/21/2023, PET/CT None, FINDINGS: Mediastinal SUV mean is 2.1. Hepatic parenchyma SUV mean is 2.8. SKULL BASE AND NECK: No suspicious radiotracer activity. CHEST, MEDIASTINUM, AND HILAR REGION: Abnormal uptake within the thorax. * Subcarinal lymph node max SUV 11.0 measuring 29.9 x 33 mm. * Right perihilar lymph node max SUV 9.0 measuring up to 30 x 21 mm. * Right lower lung medial nodule Max SUV 7.2 measuring up to 24 mm. * Right paratracheal lymph node possibly with early metastatic disease max SUV 3.4. Measuring 8 mm. ABDOMEN AND PELVIS: No suspicious radiotracer activity. MUSCULOSKELETAL STRUCTURES: No suspicious radiotracer activity. OTHER CT: Bilateral aphakia. Calcifications of the bilateral carotid bifurcations. Atherosclerosis of the coronary arteries. Aortic valve leaflet calcifications. Small hiatal hernia. Spleen is present. Left cortical renal simple appearing cyst. Scattered colonic diverticula. Right hip arthroplasty. IMPRESSION: Findings compatible with malignancy with increased radiotracer activity within the right lower lobe p ulmonary nodule with right pulmonary hilum and mediastinal FDG avid lymph nodes.
== END | disposition home or self-care (01) ==
LOC: RADPETMAIN 08:49
PROVIDERS: ATTEND Family Medicine
DX: R91.8 Other nonspecific abnormal finding of lung field (principal); K44.9 Diaphragmatic hernia without obstruction or gangrene; K57.30 Diverticulosis of large intestine without perforation or abscess without bleeding; I25.10 Atherosclerotic heart disease of native coronary artery without angina pectoris
CPT/HCPCS: 78815; A9552

== ENCOUNTER 2024-02-14 11:06 | Day surgery (SDC) | payer MEDICARE, BC ==
[~2024-02-14 11:06] MED LIST changes: -IV FLUID CONTINUATION 1,000 ML IV ONE; +LACTATED RINGERS 1,000 ML IV SCH; -SODIUM CHLORIDE 0.9% 500 ML 500 ML IV SCH
[2024-02-14] MEDS: IV FLUID CONTINUATION 1,000 ML IV ONE (11:58)
[2024-02-14] MEDS: LACTATED RINGERS 1,000 ML IV SCH (12:20)
[2024-02-14 12:23] LABS: Glucose,Whole Blood 96 mg/dL (70-110)
[2024-02-14] MEDS ORDERED: PROPOFOL 10 MG/ML 20 ML VIAL IV ONE (12:25)
[2024-02-14] MEDS ORDERED: fentaNYL (PF) 50 MCG/ML 2 ML AMP ONE (12:25)
[2024-02-14] MEDS ORDERED: LIDOCAINE 1% INJ 10MG/ML (20 ML MDV) ONE (12:25)
[2024-02-14] MEDS ORDERED: SUCCINYLCHOLINE CHLORIDE 200 MG/10 ML VIAL IV ONE (12:25)
--- NOTE | 2024-02-14 12:59 | CT ---
EXAMINATION TYPE: CT Chest wo ION protocol DATE OF EXAM: 02/14/2024 COMPARISON: PET/CT 12/28/2023 HISTORY: 84-year-old female pre-op CT DLP: 439 mGycm. Automated Exposure Control for Dose Reduction was Utilized. TECHNIQUE: CT scan of the thorax is performed without IV contrast. Imaging for endobronchial navigat ion purposes. Coronal and sagittal reconstructions performed. FINDINGS: Heart mildly enlarged. [id number] aortic valvular calcifications. Three-vessel hernadez ry artery calcifications. Borderline ectasia ascending aorta 3.6 cm. Right paratracheal lymph node at 1.3 cm has increased. Mild to moderate atherosclerotic arch calcifications with conventional arch vessel branching anatomy. 3.3 cm subcarinal soft tissue increased from 3.0 cm. Right hilar and infrahilar soft tissue 4.0 cm, increased from 3.3 cm. There is endobronchial extensio n into the right middle lobe bronchus and superior segment right lower lobe bronchus. Short segment c utoff of the bronchus basalis. Medial left basilar soft tissue increased of 3.6 cm versus 2.5 cm, previously. Prominent endobronchia l component is noted. Background mild emphysema. Scattered mild subpleural reticulation/interstitial scarring. Prominent mo tion at the lung bases. Visualized upper abdomen shows the exophytic cyst posterior upper left kidney measuring up to 4.9 cm. Left-sided colonic diverticulosis. Bones: [facility] mid and lower thoracic spine. Osteopenia. IMPRESSION: 1. Known right hilar/infrahilar, subcarinal, and medial right basilar disease. Prominent endobronchia l components involving the right middle lobe bronchus, superior segment right lower lobe bronchus, an d bronchus basalis as above. Slight interval progression noted. 2. A new 1.3 cm right paratracheal lymph node also demonstrated. 3. COPD with mild emphysema. 4. Mild cardiomegaly with three-vessel coronary artery calcifications.
[2024-02-14 13:23] VITALS: TEMP 97.7
--- NOTE | 2024-02-14 13:26 | P.PCN ---
Date of Procedure: 02/14/24 Preoperative Diagnosis: Right lower lobe mass Postoperative Diagnosis: Right lower lobe mass. Endobronchial lesion noted at the secondary norah between the right middle lobe and right lower lobe with significant narrowing of the right lower lobe bronchus and right middle lobe bronchus. 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 Surgical Procedure(s) Performed: Flexible bronchoscopy Endobronchial biopsy of the right lower lobe mass Endobronchial brushing of the right lower lobe mass Bronchial lavage of the right lower lobe Endobronchial ultrasound Transbronchial needle aspirate of the right lower lobe mass Anesthesia: DICKA Surgeon: Gregory Davis Estimated Blood Loss (ml): 5 Pathology: other Condition: stable Disposition: same day Operative Findings: This is a flexor bronchoscopy that was done in the endoscopy suite. The patient was intubated in the usual fashion by ENERGY SPECIALIST and the patient was given a #8 orotracheal tube. The patient was hemodynamically stable and adequate oxygenation and ventilation was established After achieving adequate sedation, the flexible bronchoscope was introduced through the orotracheal tube and it was advanced into the lower trachea. Distal trachea was within normal limits. Left mainstem bronchus, left upper lobe bronchus and left lower lobe bronchus intermedius 8 segments on the left were within normal limits. Examination of the right side included the right mainstem bronchus that was normal. Right upper lobe bronchus was trifurcated and the various segments of the right upper lobe were patent and within normal limits. The bronchus intermedius was normal and the secondary norah between the right middle lobe bronchus and the right lower lobe bronchus was infiltrated with a tumor which was originating from the right lower lobe. There was significant narrowing of the right lower lobe bronchus and the right middle lobe bronchus. Endobronchial tumor was seen at the medial wall of the right lower lobe bronchus and the lateral wall of the right middle lobe bronchus. At this point, under direct visualization, endobronchial biopsies of the tumor was obtained from the right lower lobe. Multiple biopsies were taken. Following that, endobronchial brushing of the right lower lobe mass was done and this was followed by bronchial lavage with a total of 60 cc of saline was infused into the right lower lobe and 20 cc were aspirated without any major difficulties. Noted the surface of the tumor was friable, irregular, and vascular. The flexor bronchoscope was removed and endobronchial ultrasound was inserted. Under EBUS vision, the right lower lobe mass was noted. Using a 22-gauge VIZI shot needle, transbronchial needle aspirate of the right lower lobe mass was done and a total of 3 passes were taken. The endobronchial ultrasound was removed and therapeutic airway suctioning was done using a flexible bronchoscope. No complications. The bronchoscope was removed and the patient was extubated and transferred to recovery in stable condition.
[2024-02-14 13:59] LABS: Glucose,Whole Blood 86 mg/dL (70-110)
--- NOTE | 2024-02-14 14:05 | XR ---
EXAMINATION TYPE: XR chest 1V portable DATE OF EXAM: 02/14/2024 HISTORY: Shortness of breath. COMPARISON: 12/20/2023 TECHNIQUE: Single view of the chest is submitted. FINDINGS: Demonstrated are scattered senescent parenchymal change. No evidence for pneumothorax. There is no evidence for focal infiltrate. The heart is stable. Hilar and mediastinal structures are within normal limits. Degenerative changes are seen of the dorsal spine. IMPRESSION: 1. Chronic changes without evidence for acute pulmonary disease.
[2024-02-14 14:37] VITALS: BP 165/75; PULSE 65; RESP 14
== END 2024-02-14 14:58 | disposition home or self-care (01) ==
LOC: ORWHC2ENDO 11:06
PROVIDERS: ATTEND Internal Medicine Critical Care Medicine
DX: C34.31 Malignant neoplasm of lower lobe, right bronchus or lung (principal); I25.10 Atherosclerotic heart disease of native coronary artery without angina pectoris; J43.9 Emphysema, unspecified; I10 Essential (primary) hypertension; E11.69 Type 2 diabetes mellitus with other specified complication; E78.5 Hyperlipidemia, unspecified; Z87.891 Personal history of nicotine dependence; K21.9 Gastro-esophageal reflux disease without esophagitis; Z88.0 Allergy status to penicillin; Z88.8 Allergy status to other drugs, medicaments and biological substances; Z80.7 Family history of other malignant neoplasms of lymphoid, hematopoietic and related tissues; Z91.09 Other allergy status, other than to drugs and biological substances; Z79.84 Long term (current) use of oral hypoglycemic drugs; Z79.899 Other long term (current) drug therapy
CPT/HCPCS: 88104; 88108; 88305; 88342; 88341; 71045; 71250; 31625; 31623; 31624; 31652; J0330; J2001; J3010; J2704

== ENCOUNTER → 2024-03-18 | Outpatient (CLI) | payer MEDICARE, BC ==
[2024-03-18 12:26] LABS: African American GFR (CKD) 81 (>60 ml/min/1.73 sqM); Blood Urea Nitrogen 20 mg/dL (7-17); Non-African American GFR(CKD) 70 (>60 ml/min/1.73 sqM)
--- NOTE | 2024-03-18 14:12 | CT ---
EXAMINATION TYPE: CT brain wo/w con DATE OF EXAM: 03/18/2024 COMPARISON: None HISTORY: Chest pain and cough. Hx of lung ca. Priors in PACS. CT DLP: 2237.9 mGycm Unenhanced followed by contrast enhanced CT of the brain was performed. The ventricles, basal cisterns and sulci overlying the cerebral convexities demonstrate mild enlargem ent. There is no evidence for intracranial hemorrhage or sulcal effacement. There is decreased attenuation about the periventricular white matter and deep white matter of both c erebral hemispheres, compatible with chronic small vessel ischemia. Differential diagnosis does inclu de demyelination. No enhancing masses are seen. No mass effects are seen.No midline shift. Osseous calvarium is intact. If symptoms persist consider MRI. IMPRESSION: 1. Age related atrophic and chronic small vessel ischemic change without acute intracranial process s een at this time. No enhancing mass lesion seen.
--- NOTE | 2024-03-18 14:21 | CT ---
EXAMINATION TYPE: CT ChestAbdPelvis wo/w con DATE OF EXAM: 03/18/2024 COMPARISON: 02/14/2024 HISTORY: Chest pain and cough. Hx of lung ca. Priors in PACS. CT DLP: 1087.4 mGycm CONTRAST: CT scan of the chest, abdomen and pelvis is performed with Oral Contrast and with IV Contrast, patien t injected with 100ML mL of Isovue 300. CT Chest: LUNGS: Right hilar/infrahilar mass currently measures 7.5 cm craniocaudal dimension by 5.4 cm AP dime nsion. There appears to be interval progression although exact comparison is difficult given noncontr ast previous examination. There is endobronchial component noted right lower lobe bronchus and right middle lobe bronchus. Right upper lobe 6 mm pulmonary nodule. Mild postobstructive change right lower lobe. Scattered mild subpleural fibrosis. MEDIASTINUM: Progressive right paratracheal adenopathy measuring 1.9 cm 1.4 cm versus up to 1.3 cm pr eviously. Subcarinal adenopathy measuring 3.7 cm AP dimension versus 3.3 cm previously. OTHER: No significant abnormality. CONTRAST CT ABDOMEN AND PELVIS FINDINGS: LIVER/GB: No calcified gallstones. No space occupying hepatic lesion. Biliary tree is of normal ca liber. PANCREAS: No inflammation. No distinct mass. SPLEEN: No splenic enlargement. No lesion seen. ADRENALS: No nodule. No thickening. KIDNEYS/BLADDER: No hydronephrosis. No nephrolithiasis. No disctinct renal mass. BOWEL: Normal appendix. Normal bowel caliber. No inflammation. GENITAL ORGANS: No gross abnormality. LYMPH NODES: No greater than 1cm abdominal or pelvic lymph nodes are appreciated. AORTA: No significant abnormality. OSSEOUS STRUCTURES: Severe chronic change lumbar spine without obvious lesion. OTHER: No significant additional abnormality is seen. IMPRESSION: 1. Progressive right hilar/right infrahilar a tumoral mass with endobronchial components and progress rocael mediastinal adenopathy as discussed.
== END | disposition home or self-care (01) ==
LOC: RADCTMAIN 11:42
PROVIDERS: ATTEND Internal Medicine
DX: C34.31 Malignant neoplasm of lower lobe, right bronchus or lung (principal); I67.82 Cerebral ischemia; R59.0 Localized enlarged lymph nodes; I10 Essential (primary) hypertension; E11.9 Type 2 diabetes mellitus without complications; Z71.3 Dietary counseling and surveillance
CPT/HCPCS: 82565; 84520; 70470; 71270; 74178; 36415; Q9967

== ENCOUNTER → 2024-05-15 | Outpatient (CLI) | payer MEDICARE, BC ==
[2024-05-15 11:10] LABS: African American GFR (CKD) 82 (>60 ml/min/1.73 sqM); Blood Urea Nitrogen 17 mg/dL (7-17); Non-African American GFR(CKD) 71 (>60 ml/min/1.73 sqM)
--- NOTE | 2024-05-15 13:04 | CT ---
CT chest abdomen and pelvis with contrast. HISTORY: Malignant neoplasm/lung cancer. COMPARISON: 03/18/2024. TECHNIQUE: Multiple axial images are obtained through the chest, abdomen and pelvis following unevent ful administration of nonionic IV contrast material. FINDINGS: CT chest: There has been a marked interval reduction in the right infrahilar masses, right hilar adenopathy and mediastinal adenopathy. Currently in the right hilar region, there is a single 15 mm hilar lymph no de. There is marked peribronchial cuffing in the lower lobe. There is marked reduction in the subcari nal lymph node which measures 2.4 cm. The right paratracheal adenopathy is stable at approximately 3. 8 cm. There are mild interstitial changes in both lung bases. There are 2 small stable 6 mm or less lymph n odes in the right upper lobe. The great vessels the chest are normal and there is no pulmonary embolus. The heart is prominent in s ize. No focal osseous lesions are seen There is no pleural effusion or pneumothorax. CT abdomen and pelvis: The gallbladder is normal without distention, wall thickening or gallstones. There is no biliary duct al dilatation. There is no focal mass or organomegaly involving the liver, pancreas, spleen or right adrenal gland. There is mild nodularity of the left adrenal gland which is stable. There is no solid renal mass or hydronephrosis. Caliber of the abdominal aorta is normal. There is a simple exophytic cyst of the posterior left kidney. There is no retroperitoneal adenopathy. The bowel loops are normal in caliber is no dilatation or obstruction. There is diverticulosis of sig moid colon without acute diverticulitis. There is no free intraperitoneal air or fluid. No pelvic mass, free fluid, abscess or adenopathy. 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 There is a right hip prosthesis. There are no focal osseous lesions. IMPRESSION: 1. Marked response to therapy in the chest with marked reduction in the right hilar masses, hilar nica nopathy and subcarinal adenopathy. Right paratracheal adenopathy is stable. 2. No evidence of metastatic disease in the abdomen, pelvis or osseous structures.
== END | disposition home or self-care (01) ==
LOC: RADCTMAIN 10:35
PROVIDERS: ATTEND Internal Medicine
DX: C34.91 Malignant neoplasm of unspecified part of right bronchus or lung
CPT/HCPCS: 36415; 71260; 74177; 82565; 84520

== ENCOUNTER → 2024-06-03 | Outpatient (CLI) | payer MEDICARE, BC ==
--- NOTE | 2024-06-03 14:47 | US ---
EXAMINATION TYPE: US extremity nonvasc mass LT DATE OF EXAM: 06/03/2024 COMPARISON: NONE CLINICAL INDICATION: Female, 84 years old with history of [id number] OBSERVATION FOR SUSPECTED METS, [id number] ; nerve like pain within left forearm and upper arm, pain also at palpable scar on left forearm TECHNIQUE: Soft tissue scan of left arm FINDINGS: No obvious abnormality to account for patients symptoms IMPRESSION: No solid or cystic mass seen by ultrasound. Correlate clinically. If high clinical suspi cion consider MRI. [facility], , 06/03/2024 2:45 PM
== END | disposition home or self-care (01) ==
LOC: RADUSWWP 14:05
PROVIDERS: ATTEND Internal Medicine
DX: C34.91 Malignant neoplasm of unspecified part of right bronchus or lung